=== PATIENT | female | born 1945 | race Caucasian/White ===

== ENCOUNTER → 2024-08-22 | Outpatient (CLI) | payer OTHER, SELFPAY ==
--- NOTE | 2024-08-22 12:36 | XR_ITS ---
EXAMINATION: Ankle, right 3 views . Technique: Ankle AP, oblique, lateral 3 views Date and time of exam: August 22, 2024 1243 hours INDICATIONS: Neck pain beginning one month ago. FINDINGS: Prominent osteopenia Mild arthritis tibiotalar joint 8mm pole 6 mm plantar bony calcaneal spurs IMPRESSION: Mild narrowing tibiotalar joint Letter posterior bony calcaneal spurs No fracture or ankle dislocation
== END | disposition home or self-care (01) ==
PROVIDERS: PCP Internal Medicine; Referring Provider Internal Medicine; Visit Provider Internal Medicine
DX: M77.31 Calcaneal spur, right foot (principal); M25.871 Other specified joint disorders, right ankle and foot
CPT/HCPCS: 73610